=== PATIENT | female | born 1960 | race Two or more races ===

== ENCOUNTER 2019-04-14 10:14 | Emergency (ER) | payer MEDICAID ==
[~2019-04-14] VITALS: Ht 157.5 cm; Wt 68.0 kg
--- NOTE | 2019-04-14 10:26 | NUR ---
ED Nurse Note: Patient came to ED d/t fall yesterday at home after tripping. Patient c/o right hand pain after the fall, along with laceration over right eyebrow. Patient denies LOC. Patient AxO x 4, no s/s of acute distress.
[2019-04-14] MEDS ORDERED: Tetanus/Diptheria/Pertussis IM ONE (11:00)
[2019-04-14] MEDS ORDERED: Bacitracin Oint UD TOPIC ONE ×2 (11:00→11:42)
[2019-04-14 11:15] VITALS: BP 183/100
--- NOTE | 2019-04-14 11:46 | Emergency Room Report ---
History of Present Illness General Chief Complaint: Multiple Trauma/Fall Source: Patient Present Illness HPI The patient slipped on a wet floor. She fell forward onto her right hand and also hit her head. There was no loss of consciousness. She has a small cut over the right lateral eyebrow area and some bruising under her eye. There are no visual changes. There is no nausea or vomiting. There is swelling and pain in her wrist. She denies any numbness. The pain radiates from her wrist up into her forearm. The elbow is not tenderness and neither is the shoulder. She denies hitting her knees and has no tenderness there. She takes no blood thinners. She has no oncologic problems. The pain is rated 10/10 in the wrist and less so in the eyebrow area. No neck pain. No nausea or vomiting. No significant bleeding. Right-handed Tetanus vaccination greater than 10 years. History of hypertension Allergies: Coded Allergies: No Known Allergies (Unverified , 04/14/19) Patient History Past Medical History: see triage record Social History: Denies: smoking, alcohol use, drug use Social History Narrative From home Reviewed Nursing Documentation: PMH: Agreed; PSxH: Agreed Nursing Documentation-PMH Past Medical History: No History, Except For Hx Hypertension: Yes Review of Systems Constitutional: Denies: fever Eye: Reports: see HPI ENT: Reports: see HPI Gastrointestinal: Reports: see HPI Musculoskeletal: Reports: see HPI Skin: Reports: see HPI Neurological: Reports: see HPI Hematologic/Lymphatic: Reports: see HPI Physical Exam Vital Signs Date Time Temp Pulse Resp B/P (MAP) Pulse Ox O2 Delivery O2 Flow Rate FiO2 04/14/19 10:17 98.1 102 20 183/100 (127) 96 Room Air Sp02 EP Interpretation: reviewed, normal General Appearance: well appearing, no apparent distress, GCS 15 Head: normocephalic, other - See skin and ENT Eyes: right eye other - Infra orbital ecchymoses; bilateral eye PERRL, bilateral eye EOMI ENT: moist mucus membranes Neck: full range of motion, supple, no bony tend Respiratory: chest non-tender, lungs clear Cardiovascular #1: regular rate, rhythm Cardiovascular #2: 2+ radial (R) - Normal capillary refill Gastrointestinal: normal inspection Musculoskeletal: gait/station normal, swelling - Right wrist, back normal, pelvis stable, tenderness - Right wrist with posterior deformity, moves extm spontaneously, decreased range of mation - Right wrist due to pain Neurologic: alert, motor strength/tone normal - Except right wrist, 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, DTRs symmetric, oriented x3, sensory intact, cerebellar normal, speech normal Psychiatric: mood/affect normal Skin: laceration - 5 mm superficial lateral to right eyebrow Medical Decision Making Diagnostic Impression: Primary Impression: Right wrist fracture Qualified Codes: S62.101A - Fracture of unspecified carpal bone, right wrist, initial encounter for closed fracture Additional Impressions: Head injury Qualified Codes: S09.90XA - Unspecified injury of head, initial encounter Facial laceration Qualified Codes: S01.81XA - Laceration without foreign body of other part of head, initial encounter ER Course Patient presents post non-syncopal fall with right wrist pain and head injury. Differential includes fracture, contusion and dislocation. Laceration is superficial and does not need sutures. Tetanus is indicated. Analgesia ordered. X-rays indicated. X-rays with right wrist fracture with some posterior angulation. See report. Forearm film with the wrist fracture but no other injuries. Splint applied by emergency department tech. Position excellent with decreased pain. Sling applied. Distal neurovascular exam normal as checked by me after application. Facial wound treated with bacitracin. Discussed findings with patient and the need for orthopedic follow-up. Also discussed the need for waking 1 time tonight due to head injury. Pain greatly improved. Neurologic exam normal. Patient stable for outpatient observation and treatment. Other X-Ray Diagnostic Results Other X-Ray Diagnostic Results #1: X-Ray ordered: Right wrist # of Views/Limited Vs Complete: 3 View Indication: Other EP Interpretation: Yes Interpretation: no dislocation, other - Comminuted distal radius fracture with posterior angulation Impression: Other Electronically Signed by: Electronically signed by Derick Metz MD Other X-Ray Diagnostic Results #2: X-Ray ordered: Right forearm # of Views/Limited Vs Complete: 2 View Indication: Other EP Interpretation: Yes Interpretation: other - Wrist fracture with extension into joints with soft tissue swelling Impression: Other Electronically Signed by: Electronically signed by Derick Metz MD Last Vital Signs Date Time Temp Pulse Resp B/P (MAP) Pulse Ox O2 Delivery O2 Flow Rate FiO2 04/14/19 11:58 98.1 102 20 141/89 96 Room Air 78 Status: improved Disposition: HOME, SELF-CARE Condition: Improved Scripts Bacitracin (Bacitracin) 28.4 Gm Oint...g. 1 APPLIC TOPIC BID, #10 GM Prov: Derick Metz MD 04/14/19 Ibuprofen* (MOTRIN*) 600 Mg Tablet 600 MG ORAL Q6H PRN for For Pain, #16 TAB Prov: Derick Metz MD 04/14/19 Tramadol Hcl* (ULTRAM*) 50 Mg Tablet 50 MG ORAL Q6H PRN for For Pain, #10 TAB 0 Refills Prov: Derick Metz MD 04/14/19 Referrals: NOT CHOSEN IPA/,REFERRING (PCP) Derick Metz MD Apr 14, 2019 11:46
[2019-04-14] MEDS ORDERED: IBUPROFEN600 MG ORAL (11:53)
[2019-04-14] MEDS ORDERED: TRAMADOL HCL50 MG ORAL (11:53)
[2019-04-14] MEDS ORDERED: BACITRACIN15 GM TOPIC (11:54)
[2019-04-14 11:58] VITALS: BP 141/89
--- NOTE | 2019-04-14 11:58 | NUR ---
ER DISCHARGE NOTE: Patient cleared for DC by Dr. Metz. Verbalized understanding of DC instructions. ID band removed, patient walks with steady gait. All belongings taken by patient.
--- NOTE | 2019-04-14 12:31 | Diagnostic Imaging Report ---
EXAM: XR Right Wrist, 2 Views CLINICAL HISTORY: TRAUMA TECHNIQUE: Frontal and lateral views of the right wrist. COMPARISON: None FINDINGS: Bones/joints: Comminuted, displaced fractures of the distal right radial metaphysis with intra-articular extension and mild dorsal angulation of the distal fracture fragments. Nondisplaced fracture of the right ulnar styloid process. Osteopenia. Soft tissues: Soft tissue swelling. IMPRESSION: 1. Comminuted, displaced fractures of the distal right radial metaphysis with intra-articular extension and mild dorsal angulation of the distal fracture fragments. 2. Nondisplaced fracture of the right ulnar styloid process.
--- NOTE | 2019-04-14 12:32 | Diagnostic Imaging Report ---
EXAM: XR Right Forearm, 2 Views CLINICAL HISTORY: TRAUMA TECHNIQUE: Frontal and lateral views of the right forearm. COMPARISON: None FINDINGS: Bones/joints: Comminuted fractures of the distal right radial metaphysis with intra-articular extension. Ulnar styloid process fracture is better visualized on accompanying right wrist radiographs. Osteopenia. Soft tissues: Soft tissue swelling in the distal right forearm and wrist. IMPRESSION: Comminuted fractures of the distal right radial metaphysis with intra- articular extension. Ulnar styloid process fracture is better visualized on accompanying right wrist radiographs.
== END 2019-04-14 11:58 | disposition home or self-care (01) ==
LOC: EMR 11:00
DX: S62.101A Fracture of unspecified carpal bone, right wrist, initial encounter for closed fracture (principal); S09.90XA Unspecified injury of head, initial encounter; S01.81XA Laceration without foreign body of other part of head, initial encounter; W01.0XXA Fall on same level from slipping, tripping and stumbling without subsequent striking against object, initial encounter; Y92.9 Unspecified place or not applicable; I10 Essential (primary) hypertension; Z23 Encounter for immunization
CPT/HCPCS: 29125; 73090; 73110; 90471; 90715; Z7502; 99284